=== PATIENT | female | born 1970 | race Caucasian/White ===

== ENCOUNTER → 2017-08-29 | Outpatient (CLI) | payer OTHER ==
--- NOTE | 2017-08-29 23:52 | RADRPT ---
PROCEDURE: XR Right hip and pelvis. CLINICAL INDICATION: Right hip pain and pelvic pain. TECHNIQUE: 3 views. Frontal pelvis. Frontal and lateral right hip. COMPARISON: 05/09/2015. FINDINGS: There is no fracture or dislocation. The soft tissues are normal. There are degenerative changes of the right hip with joint space narrowing, osteophytes, subarticula r sclerosis, subarticular cysts, and deformity. There is no other lytic or blastic lesion. There are moderate degenerative changes of the left hip w ith joint space narrowing and osteophytes. The upper pelvis is not completely included on the images. IMPRESSION: 1. Severe degenerative changes of the right hip. 2. Moderate degenerative changes of the left hip. RPTAT: QQ .Mayur Pandey MD, MD Date Time Electronically viewed and signed by .Mayur Pandey MD, on 08/29/2017 23:52 .R/
--- NOTE | 2017-08-30 04:15 | HKNOTE ---
DATE OF SERVICE: CHIEF COMPLAINT: Right hip pain. HISTORY OF PRESENT ILLNESS: This is a 47-year-old female complaining of right groin pain that has b een progressively worsening over the last couple of years. She is morbidly obese. The pain is in t he right groin with radiation to the right knee. She does not use any assistive devices. The pain is worse with prolonged standing and walking. She works as a hairdresser. She denies any back pain . She has not had any previous treatment. GAIT: Antalgic gait, no use of assistive device. RIGHT HIP EXAMINATION: Zero to 80 degrees of flexion, 40 degrees external rotation, -10 degrees int ernal rotation, positive obligate external rotation, negative straight leg raise, positive Amanuel's. LEFT HIP EXAMINATION: Zero to 90 degrees range of motion, 50 degrees of external rotation, 20 degre es of internal rotation. Negative Amanuel's, negative straight leg raise, negative obligate external rotation. IMAGING: AP PELVIS X-RAY: There is degenerative changes of the right hip with [id number] contact. There a re marginal osteophytes and subchondral sclerosis. There are also degenerative changes of the left hip with preservation of the joint space. X-RAY RIGHT HIP TWO VIEWS: X-rays of the right hip demonstrated advanced osteoarthritis of the righ t hip with loss of all joint space and marginal osteophytes. IMPRESSION: A 47-year-old female with the right hip osteoarthritis. PLAN: I discussed treatment options with Ms. Kapoor. I explained to her that she is overweight an d would benefit from weight loss. She is currently scheduled to see a bariatric surgeon. I discuss ed use of a cane, but she was not interested. I also discussed possible right hip corticosteroid in jection. She would like to try and reduce her weight. In the meantime, she will follow up in 3 mon ths for reevaluation. Dictated By: TAMMIE BYRD/NYLA Conf#: [id number] DID#: [id number]
== END | disposition home or self-care (01) ==
LOC: HKI 15:49
PROVIDERS: ATTEND Orthopaedic Surgery Adult Reconstructive Orthopaedic Surgery
DX: M16.11 Unilateral primary osteoarthritis, right hip (principal); E66.01 Morbid (severe) obesity due to excess calories
CPT/HCPCS: 73502; Z7500; G0463

== ENCOUNTER → 2018-11-13 | Outpatient (CLI) | payer OTHER ==
--- NOTE | 2018-11-13 17:37 | CONS ---
Date/Time of Note Date/Time of Note DATE: 11/13/18 TIME: 17:28 Consult Date/Type/Reason Admit Date/Time Initial Consult Date Subjective This is a 48-year-old female who is returning today for follow-up regarding her right hip pain. She previously saw my partner Dr. Eula Anand. At that time she was counseled on losing weight so her perioperative risk would be acceptable. She was last seen August 2017. At that time she was also prescribed to get an outpatient hip injection in a radiology center. She states the injection did help somewhat. She has been trying to lose weight. Over the last month and a half she has lost 15 pounds and weighs 245 pounds currently. However her hip has persistently worsened over the last year. She does take naproxen as needed which does help a little. She denies any numbness and tingling. Denies any previous injury to the hip joint. She does not use a gait aid despite her difficulty ambulating. She has difficulty using stairs. She has tried physical therapy in the past. Her pain is 8/10. Is described as dull and throbbing. Objective Weight: 245 pounds Height: 5 foot 2 inches BMI: 44.8 Temperature: 98.5 Heart Rate: 66 Blood Pressure: 113/68 Respiratory Rate: 14 Exam General: Awake, alert, in no acute distress, pleasant and cooperative Heart: regular rhythm Lungs: breathing comfortably, no tachypnea or dyspnea Musculoskeletal: Well developed morbidly obese female in no apparent distress. Gait demonstrates a Trendelenburg with antalgic components and short leg component. Standing, the pelvis is level and supine there is a true leg length discrepancy, with the right leg 0.5 cm short. Moderate tenderness over trochanteric bursa or IT band. ----- Range of motion: Flexion: 90 Extension: 0 Internal rotation: 0 External rotation: 45 Abduction: 30 Adduction: 0 ----- Sitting there is no pelvic obliquity. Pain at the extremes of motion of the affected hip. Skin was intact throughout both lower extremities. Sensation intact to light touch in a sural, saphenous, deep peroneal, superficial peroneal, medial and lateral plantar nerve distribution. Neurovascular exam showed 5/5 strength in the abductors, quads, EHL/tibialis anterior/gastroc. Normal and symmetrical pulses were palpated in both the dorsalis pedis and posterior tibial arteries. There is no sign of venous stasis. Results/Medications Results 24 hrs The patient received a full set of films and personally reviewed by myself today in clinic including an AP pelvis and an AP and lateral of the affected hip. The hip is reduced. There is complete loss of joint space. When compared to previous films taken in August 2017 there is significant progression of destruction of the femoral head and collapse of the femoral head. There are large cysts on both the femoral and acetabular side of the joint. There is osteophyte formation. There is subchondral sclerosis. There are subchondral cysts. There is no significant deformity of the the proximal femur, femoral neck, or acetabulum. The pelvis is in continuity. 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 There has been significant progression and collapse and cystic formation of her hip joint since her injection proximally 14 months ago. Her BMI is still elevated above the threshold of where I believe surgical risks are acceptable. Her current BMI is 44.8. She would need to weigh at maximum 215 pounds for her BMI to be below 40 which is my cut off. She has started a new diet and has had made significant progress in the last month and a half. I encouraged her to continue to work on this as I believe that she will be able to achieve her goal and her surgery could be done safely. I did caution her that some of these extreme diets do cause malnourishment that she needs to make sure that she does have adequate intake of vitamins and minerals and protein. I encouraged her to start taking vitamin D and calcium supplement. Once she reaches 215 pounds or less we will again discuss surgery and likely draw some nutritional labs at that time. Plan: Weight loss Meloxicam Vitamin D and calcium supplementation Follow-up in 3 months DONNA ORTIZ MD Nov 13, 2018 17:37
--- NOTE | 2018-11-14 08:45 | RADRPT ---
PROCEDURE: XR hip and pelvis CLINICAL INDICATION: Hip pain. TECHNIQUE: 3 weightbearing views of the right hip including pelvis are available for review. COMPARISON: 05/09/2015. FINDINGS: There is no acute fracture or dislocation. There are severe osteoarthritic changes of the right hip w ith joint space narrowing, osteophytosis and subchondral sclerosis, not significantly changed. There are moderate degenerative changes of the left hip joint, not substantially changed. Mild arthritic ch anges of bilateral sacroiliac joints are noted. IMPRESSION: 1. Severe right hip osteoarthritis, not significantly changed. 2. Moderate left hip osteoarthritis, not significantly changed. 3. Mild bilateral sacroiliac arthritis. RPTAT: DD Physician Josselyn Date Time Electronically viewed and signed by Physician Josselyn on 11/14/2018 08:44 /
== END | disposition home or self-care (01) ==
LOC: HKI 13:20
PROVIDERS: ATTEND Orthopaedic Surgery Adult Reconstructive Orthopaedic Surgery
DX: M16.11 Unilateral primary osteoarthritis, right hip (principal); E66.01 Morbid (severe) obesity due to excess calories
CPT/HCPCS: 73502; G0463